=== PATIENT | female | born 1985 | race Caucasian/White ===

== ENCOUNTER 2018-10-18 22:54 | Inpatient (IN) | payer BC ==
[2018-10-18] MEDS ORDERED: LIDOCAINE 0.5% (PF) 5 MG/ML (50 ML SDV) SQ PRN (23:01)
[2018-10-18] MEDS ORDERED: METHYLERGONOVINE 0.2 MG/ML 1 ML AMP IM PRN (23:01)
[2018-10-18] MEDS ORDERED: OXYTOCIN 10 UNIT/ML 1 ML VIAL IM PRN (23:01)
[2018-10-18] MEDS ORDERED: CARBOPROST TROMETHAMINE 250 MCG/ML 1 ML AMP IM PRN (23:01)
[2018-10-18] MEDS ORDERED: TERBUTALINE 1 MG/ML VIAL SQ PRN (23:01)
--- NOTE | 2018-10-18 23:13 | P.HPOB ---
History of Present Illness H&P Date: 10/18/18 Chief Complaint: Labor 33 year old presents at 39 weeks 6 days in labor. Her cervix is 4/80/-2. she is mandeep every 3-5 minutes. heart tones 140 with moderate variability and accels, reactive. Category 1. Review of Systems All systems: negative Constitutional: Denies chills, Denies fever Eyes: denies blurred vision, denies pain Ears, nose, mouth and throat: Denies headache, Denies sore throat Cardiovascular: Denies chest pain, Denies shortness of breath Respiratory: Denies cough Gastrointestinal: Denies abdominal pain, Denies diarrhea, Denies nausea, Denies vomiting Genitourinary: Denies dysuria, Denies hematuria Musculoskeletal: Denies myalgias Integumentary: Denies pruritus, Denies rash Neurological: Denies numbness, Denies weakness Psychiatric: Denies anxiety, Denies depression Endocrine: Denies fatigue, Denies weight change Past Medical History Past Medical History: No Reported History Additional Past Medical History / Comment(s): OB history: First was a vaginal delivery at 38 weeks and she did have pre-eclampsia. This is her second and she has had care with me since the first trimester. O+, HIV NR, RPR NR, Rub Imm, Hep B neg. Additional Past Surgical History / Comment(s): jaw Past Anesthesia/Blood Transfusion Reactions: No Reported Reaction Past Psychological History: No Psychological Hx Reported Past Alcohol Use History: None Reported Past Drug Use History: None Reported Medications and Allergies Home Medications Medication Instructions Recorded Confirmed Type No Known Home Medications 10/18/18 10/18/18 History Allergies Allergy/AdvReac Type Severity Reaction Status Date / Time No Known Allergies Allergy Verified 10/18/18 23:00 Exam Osteopathic Statement: *. No significant issues noted on an osteopathic structural exam other than those noted in the History and Physical/Consult. Intake and Output 10/18/18 10/18/18 10/19/18 14:59 22:59 06:59 Other: Weight 97.522 kg HEart: RRR Lungs: CTAB Abdomen: soft, nontender Extremeties: neg bahnu's Assessment and Plan (1) Normal labor Current Visit: Yes Status: Acute Code(s): O80 - ENCOUNTER FOR FULL-TERM UNCOMPLICATED DELIVERY; Z37.9 - OUTCOME OF DELIVERY, UNSPECIFIED SNOMED Code(s): 57336732 Plan: 1. Admit to family place 2. Expectant management 3. Anticipate normal vaginal delivery
[2018-10-18] MEDS ORDERED: OXYTOCIN 30 UNITS/500 ML NS 30 UNIT in SALINE 1 500ML.BAG IV SCH (23:15)
[2018-10-18 23:23] VITALS: BMI 38.0
[2018-10-18] MEDS: LACTATED RINGERS 1,000 ML IV SCH (23:26)
[2018-10-18 23:30] LABS: Anisocytosis Slight; Basophils % (A) 0 %; Eosinophils # (A) 0.2 k/uL (0-0.7); Eosinophils % (A) 1 %; HCT 32.8 % (34.0-46.0); HGB 11.4 gm/dL (11.4-16.0); Lymphocytes # (A) 2.2 k/uL (1.0-4.8); Lymphocytes % (A) 19 %; MCH 28.4 pg (25.0-35.0); MCHC 34.6 g/dL (31.0-37.0); MCV 82.1 fL (80.0-100.0); Mean Platelet Volume 10.1; Monocytes # (A) 0.8 k/uL (0-1.0); Monocytes % (A) 7 %; Neutrophils # (A) 8.4 k/uL (1.3-7.7); Neutrophils % (A) 72 %; Platelet Count 271 k/uL (150-450); RDW 16.3 % (11.5-15.5); WBC 11.7 k/uL (3.8-10.6)
--- NOTE | 2018-10-18 23:48 | P.MSEPDOC ---
Presenting Problems - Arrival Data Date of Arrival on Unit: 10/18/18 Mode of Transport: Wheelchair - Complaint Comment: Dr. Akhtar here and saw pt at bedside Vital Signs - Temperature Temperature: 97.4 F Temperature Source: Temporal Artery Scan - Pulse Right Brachial Pulse Rate: 87 Pulse Assessment Method: Automatic Cuff - Respirations Respiratory Rate: 18 Oxygen Delivery Method: Room Air - Blood Pressure Right Arm Blood Pressure: 145/86 Blood Pressure Mean: 105 Disposition - Disposition OB Disposition: Admit, LDRP Suite I agree with the RN Medical Screening Exam: Yes Risk & Benefit of care provided described in d/c instruction: Yes Diagnosis: ENCOUNTER FOR FULL-TERM UNCOMPLICATED DELIVERY
[2018-10-19] MEDS: LACTATED RINGERS 1,000 ML IV SCH ×2 (00:19→17:11)
[2018-10-19] MEDS ORDERED: SODIUM CHLORIDE 0.9% 100 ML BAG ONE (00:37)
[2018-10-19] MEDS ORDERED: ROPIVACAINE 5MG/ML 20ML VIAL ONE (00:37)
[2018-10-19] MEDS ORDERED: fentaNYL (PF) 50 MCG/ML 5 ML AMP ONE (00:37)
[2018-10-19] MEDS ORDERED: BUTORPHANOL 1 MG/ML 1 ML VIAL IV PRN (01:25)
[2018-10-19] MEDS ORDERED: diphenhydrAMINE 50 MG/ML 1 ML VIAL IVP PRN ×2 (04:30)
[2018-10-19] MEDS ORDERED: ZOLPIDEM 5 MG TAB PO PRN (04:30)
[2018-10-19] MEDS ORDERED: ACETAMINOPHEN TAB 325 MG TAB PO PRN (04:30)
[2018-10-19] MEDS ORDERED: SIMETHICONE 80 MG CHEWABLE PO PRN (04:30)
[2018-10-19] MEDS ORDERED: IBUPROFEN 600 MG TAB PO PRN (04:30)
[2018-10-19] MEDS ORDERED: HYDROCORTISONE 2.5% RECTAL CREAM 30 GM TUBE RECTAL PRN (04:30)
[2018-10-19] MEDS ORDERED: OXYTOCIN 20 UNITS/1000 ML NS 1,000 ML IV SCH (04:30)
[2018-10-19] MEDS ORDERED: diphenhydrAMINE 50 MG CAP PO PRN (04:30)
[2018-10-19] MEDS ORDERED: BENZOCAINE/MENTHOL SPRAY 1 GM/SPRAY AEROSOL TOPICAL PRN (04:30)
[2018-10-19] MEDS ORDERED: diphenhydrAMINE 25 MG CAP PO PRN (04:30)
[2018-10-19] MEDS ORDERED: WITCH HAZEL 1 EACH MED..PAD TOPICAL PRN (04:30)
[2018-10-19] MEDS ORDERED: LANOLIN CREAM 5 GM TUBE TOPICAL PRN (04:30)
[2018-10-19] MEDS: SENNOSIDES-DOCUSATE SODIUM 1 EACH TAB PO SCH ×2 (07:30→20:05)
--- NOTE | 2018-10-19 08:31 | P.PROBDLV ---
Vaginal Delivery Note - . Vaginal Delivery Note: 33 year old presents at 39 weeks 6 days in labor. Her cervix is 4/80/-2. she is mandeep every 3-5 minutes. heart tones 140 with moderate variability and accels, reactive. Category 1. Patient was admitted to [facility] and got an epidural. She was never really comfortable with this epidural. Around 2 AM when she was 5-6 cm dilated, 80% effaced, and -1 station amniotomy was performed and clear fluid noted. She progressed to complete at 3:53 AM, pushed, delivered a viable male infant over intact perineum under epidural anesthesia at 4:08 AM. Head delivered OA, nuchal cord 1 easily reduced, anterior shoulder delivered gentle downward guidance for by posterior shoulder and rest of body. Nose and mouth bulb suctioned, cord clamped and cut, placed mother's abdomen. Apgars 9, 9, weight 7 lbs. 13 oz. Placenta delivered spontaneously, intact with three-vessel cord at 4:13 AM. Vagina, cervix, perineum were inspected. First-degree midline episiotomy was repaired with 3-0 Vicryl. Estimated blood loss 100 mL.
[2018-10-20] MEDS: SENNOSIDES-DOCUSATE SODIUM 1 EACH TAB PO SCH (07:33)
--- NOTE | 2018-10-20 08:02 | P.DS ---
Providers Date of admission: 10/18/18 22:59 Expected date of discharge: 10/20/18 Attending physician: Inez Akhtar Primary care physician: Stated None - Discharge Diagnosis(es) (1) Normal labor Current Visit: Yes Status: Resolved (2) Normal vaginal delivery Current Visit: Yes Status: Acute Hospital Course: Pt presented in active labor. She underwent a normal vaginal delivery. HEr pp course was uncomplicated. She will be discharged home PPD #1 in stable condition to follow up with me in 6 weeks. Plan - Discharge Summary New Discharge Prescriptions: No Action No Known Home Medications Discharge Medication List No Known Home Medications 10/18/18 [History] Follow up Appointment(s)/Referral(s): Inez Akhtar DO [Doctor of Osteopathic Medicine] - 6 Weeks Discharge Disposition: HOME SELF-CARE
[2018-10-20 08:58] VITALS: BP 143/85; PULSE 82; RESP 17; TEMP 98.3
== END 2018-10-20 10:45 | disposition home or self-care (01) | DRG 807 ==
LOC: FBPOP 22:54 → 4FBP 22:59
PROVIDERS: ADMIT Obstetrics & Gynecology; ATTEND Obstetrics & Gynecology
PROC: 10E0XZZ Delivery of Products of Conception, External Approach (ICD-10-PCS; principal; 2018-10-18)
PROC: 0W8NXZZ Division of Female Perineum, External Approach (ICD-10-PCS; 2018-10-18)
PROC: 00HU33Z Insertion of Infusion Device into Spinal Canal, Percutaneous Approach (ICD-10-PCS; 2018-10-18)
PROC: 3E0R3BZ Introduction of Anesthetic Agent into Spinal Canal, Percutaneous Approach (ICD-10-PCS; 2018-10-18)
DX: O69.81X0 Labor and delivery complicated by cord around neck, without compression, not applicable or unspecified (principal); Z37.0 Single live birth; Z3A.39 39 weeks gestation of pregnancy; K21.9 Gastro-esophageal reflux disease without esophagitis; O99.62 Diseases of the digestive system complicating childbirth
CPT/HCPCS: 85025; 86850; 86900; 86901

== ENCOUNTER 2020-12-28 06:00 | Inpatient (IN) | payer BC ==
[2020-12-28] MEDS ORDERED: OXYTOCIN 10 UNIT/ML 1 ML VIAL IM PRN (06:35)
[2020-12-28] MEDS ORDERED: LIDOCAINE 0.5% (PF) 5 MG/ML (50 ML SDV) SQ PRN (06:35)
[2020-12-28] MEDS ORDERED: CARBOPROST TROMETHAMINE 250 MCG/ML 1 ML AMP IM PRN (06:35)
[2020-12-28] MEDS ORDERED: TERBUTALINE 1 MG/ML VIAL SQ PRN (06:35)
[2020-12-28] MEDS ORDERED: METHYLERGONOVINE 0.2 MG/ML 1 ML AMP IM PRN (06:35)
[2020-12-28] MEDS: LACTATED RINGERS 1,000 ML IV SCH ×2 (06:45→10:12)
[2020-12-28] MEDS ORDERED: LACTATED RINGERS 1,000 ML IV SCH (06:45)
[2020-12-28] MEDS ORDERED: OXYTOCIN 30 UNITS/500 ML NS 30 UNIT in SALINE 1 500ML.BAG IV SCH ×2 (06:45→13:00)
[2020-12-28 07:03] LABS: Basophils % (A) 0 %; Eosinophils # (A) 0.2 k/uL (0-0.7); Eosinophils % (A) 2 %; HCT 31.8 % (34.0-46.0); Lymphocytes # (A) 1.9 k/uL (1.0-4.8); Lymphocytes % (A) 18 %; MCH 28.4 pg (25.0-35.0); MCHC 34.8 g/dL (31.0-37.0); MCV 81.5 fL (80.0-100.0); Mean Platelet Volume 8.4; Monocytes # (A) 0.8 k/uL (0-1.0); Monocytes % (A) 7 %; Neutrophils # (A) 7.5 k/uL (1.3-7.7); Neutrophils % (A) 72 %; Platelet Count 255 k/uL (150-450); RDW 14.5 % (11.5-15.5); WBC 10.4 k/uL (3.8-10.6)
--- NOTE | 2020-12-28 07:09 | P.HPOB ---
History of Present Illness H&P Date: 12/28/20 Chief Complaint: induction of labor 35-year-old presents at 39 weeks for induction of labor. Her cervix is 2 cm dilated, 70% effaced, -2 station. She is mandeep irregularly. heart tones 140 with moderate variability and reactive. Review of Systems All systems: negative Constitutional: Denies chills, Denies fever Eyes: denies blurred vision, denies pain Ears, nose, mouth and throat: Denies headache, Denies sore throat Cardiovascular: Denies chest pain, Denies shortness of breath Respiratory: Denies cough Gastrointestinal: Denies abdominal pain, Denies diarrhea, Denies nausea, Denies vomiting Genitourinary: Denies dysuria, Denies hematuria Musculoskeletal: Denies myalgias Integumentary: Denies pruritus, Denies rash Neurological: Denies numbness, Denies weakness Psychiatric: Denies anxiety, Denies depression Endocrine: Denies fatigue, Denies weight change Past Medical History Past Medical History: No Reported History Additional Past Medical History / Comment(s): OB history: First was a vaginal delivery at 38 weeks and she did have pre-eclampsia. Second was a vaginal delivery. This is her third and she has had care with me since the first trimester. O+, HIV NR, RPR NR, Rub Imm, Hep B neg. History of Any Multi-Drug Resistant Organisms: None Reported Past Surgical History: Tonsillectomy Additional Past Surgical History / Comment(s): jaw Past Anesthesia/Blood Transfusion Reactions: No Reported Reaction Past Psychological History: No Psychological Hx Reported Smoking Status: Never smoker Past Alcohol Use History: None Reported Past Drug Use History: None Reported - Past Family History Mother Family Medical History: Hypertension Medications and Allergies Home Medications Medication Instructions Recorded Confirmed Type Aspirin 1 tab PO ONCE 12/28/20 12/28/20 History Doxylamine Succinate [Unisom] 1 tab PO ONCE 12/28/20 12/28/20 History Allergies Allergy/AdvReac Type Severity Reaction Status Date / Time No Known Allergies Allergy Verified 12/28/20 06:35 Exam Osteopathic Statement: *. No significant issues noted on an osteopathic structural exam other than those noted in the History and Physical/Consult. Vital Signs Temp Pulse Resp BP Pulse Ox 12/28/20 06:37 96.4 F L 75 16 164/91 97 Intake and Output 06/15/21 06/16/21 06/16/21 22:59 06:59 14:59 Other: Weight 98.883 kg Heart: Regular rate and rhythm Lungs: Clear to auscultation bilaterally Abdomen: Soft, nontender Extremities: Negative Homans sign Results Result Diagrams: 12/28/20 06:38 Abnormal Lab Results - Last 24 Hours (Table) 12/28/20 Range/Units 06:38 Hgb 11.0 L (11.4-16.0) gm/dL Hct 31.8 L (34.0-46.0) % Assessment and Plan (1) Elective induction of labor planned Current Visit: Yes Status: Acute Code(s): [id number] - SNOMED Code(s): 043576076 Plan: 1. Patient has some elevated blood pressures this morning, this is the first time in this . I may order preeclamptic labs 2. Induction of labor with amniotomy and Pitocin 3. Anticipate normal vaginal delivery
[2020-12-28] MEDS ORDERED: diphenhydrAMINE 50 MG CAP PO PRN (12:48)
[2020-12-28] MEDS ORDERED: ZOLPIDEM 5 MG TAB PO PRN (12:48)
[2020-12-28] MEDS ORDERED: diphenhydrAMINE 50 MG/ML 1 ML VIAL IVP PRN ×2 (12:48)
[2020-12-28] MEDS ORDERED: LANOLIN CREAM 5 GM TUBE TOPICAL PRN (12:48)
[2020-12-28] MEDS ORDERED: diphenhydrAMINE 25 MG CAP PO PRN (12:48)
[2020-12-28] MEDS ORDERED: BENZOCAINE/MENTHOL SPRAY 1 GM/SPRAY AEROSOL TOPICAL PRN (12:48)
[2020-12-28] MEDS ORDERED: HYDROCORTISONE 2.5% RECTAL CREAM 30 GM TUBE RECTAL PRN (12:48)
[2020-12-28] MEDS ORDERED: SIMETHICONE 80 MG CHEWABLE PO PRN (12:48)
[2020-12-28] MEDS ORDERED: ACETAMINOPHEN TAB 325 MG TAB PO PRN (12:48)
[2020-12-28] MEDS ORDERED: IBUPROFEN 600 MG TAB PO PRN (12:48)
[2020-12-28] MEDS ORDERED: LABETALOL 200 MG TAB PO STA (14:24)
[2020-12-28] MEDS ORDERED: SENNOSIDES-DOCUSATE SODIUM 1 EACH TAB PO SCH (20:00)
--- NOTE | 2020-12-29 07:48 | P.DS ---
Providers Date of admission: 12/28/20 06:19 Expected date of discharge: 12/29/20 Attending physician: Inez Akhtar Primary care physician: Stated None - Discharge Diagnosis(es) (1) Elective induction of labor planned Current Visit: Yes Status: Resolved (2) Normal vaginal delivery Current Visit: No Status: Acute Hospital Course: Patient presented for induction of labor. She underwent a normal vaginal delivery. course was uncomplicated. She'll be discharged home day #1 in stable condition to follow-up with me in 6 weeks. Plan - Discharge Summary New Discharge Prescriptions: No Action Doxylamine Succinate [Unisom] 1 tab PO ONCE Aspirin 1 tab PO ONCE Discharge Medication List Aspirin 1 tab PO ONCE 12/28/20 [History] Doxylamine Succinate [Unisom] 1 tab PO ONCE 12/28/20 [History] Follow up Appointment(s)/Referral(s): Inez Akhtar DO [Doctor of Osteopathic Medicine] - 02/07/21 10:45 am Discharge Disposition: HOME SELF-CARE
[2020-12-29 08:08] LABS: Basophils % (A) 0 %; Eosinophils # (A) 0.1 k/uL (0-0.7); Eosinophils % (A) 1 %; HCT 28.1 % (34.0-46.0); HGB 9.6 gm/dL (11.4-16.0); Lymphocytes # (A) 1.7 k/uL (1.0-4.8); Lymphocytes % (A) 18 %; MCH 28.8 pg (25.0-35.0); MCHC 34.3 g/dL (31.0-37.0); MCV 84.1 fL (80.0-100.0); Mean Platelet Volume 8.6; Monocytes # (A) 0.6 k/uL (0-1.0); Monocytes % (A) 6 %; Neutrophils # (A) 6.6 k/uL (1.3-7.7); Neutrophils % (A) 73 %; Platelet Count 212 k/uL (150-450); RBC 3.34 m/uL (3.80-5.40); RDW 14.6 % (11.5-15.5)
[2020-12-29 08:43] VITALS: BP 145/84; PULSE 73; RESP 15; TEMP 97.9
== END 2020-12-29 14:00 | disposition home or self-care (01) | DRG 807 ==
LOC: 4FBP 06:19
PROVIDERS: ADMIT Obstetrics & Gynecology; ATTEND Obstetrics & Gynecology
PROC: 10E0XZZ Delivery of Products of Conception, External Approach (ICD-10-PCS; principal; 2020-12-28)
DX: O14.94 Unspecified pre-eclampsia, complicating childbirth (principal); Z37.0 Single live birth; O26.893 Other specified pregnancy related conditions, third trimester; Z3A.39 39 weeks gestation of pregnancy; Z82.49 Family history of ischemic heart disease and other diseases of the circulatory system
CPT/HCPCS: 85025; 86850; 86900; 86901